=== PATIENT | female | born 1965 | race African-American/Black ===

== ENCOUNTER 2022-02-20 12:50 | Emergency (ER) | payer SELFPAY ==
[~2022-02-20] VITALS: Ht 160 cm; Wt 75.7 kg
[2022-02-20] MEDS ORDERED: CLONIDINE HCL 0.1 MG TAB PO ONE (14:15)
[2022-02-20] MEDS ORDERED: AMLODIPINE BESYL5 MG PO (16:41)
[2022-02-20] MEDS ORDERED: NAPROSYN500 MG PO (16:41)
== END 2022-02-20 16:59 | disposition home or self-care (01) ==
LOC: ER 13:15
DX: S00.83XA Contusion of other part of head, initial encounter (principal); S16.1XXA Strain of muscle, fascia and tendon at neck level, initial encounter; W22.09XA Striking against other stationary object, initial encounter; Y93.01 Activity, walking, marching and hiking; Y99.0 Civilian activity done for income or pay; I10 Essential (primary) hypertension; F17.210 Nicotine dependence, cigarettes, uncomplicated
CPT/HCPCS: 70450; 72125; 99283